=== PATIENT | male | born 1965 | race American Indian/Alaskan Native ===

== ENCOUNTER 2017-01-06 09:28 | Day surgery (SDC) | payer OTHER ==
[~2017-01-06 09:28] MED LIST: ePHEDrine SULFATE ONE
[2017-01-06] MEDS ORDERED: NACL 0.9% 1000 ML 1,000 ML IV SCH (10:00)
--- NOTE | 2017-01-06 10:31 | Anesthesia Day of Surgery ---
Anesthesia Day of Surgery - Day of Surgery Patient Examined: Yes Patient H&P Reviewed: Yes Patient is NPO: Yes
--- NOTE | 2017-01-06 10:31 | Anesthesia Consultation ---
Anesthesia Consult and Med Hx Date of service: 01/06/17 - Airway Anesthetic Teeth Evaluation: Good ROM Head & Neck: Adequate Mental/Hyoid Distance: Adequate Mallampati Class: Class II - Pulmonary Exam CTA: Yes - Cardiac Exam Cardiac Exam: RRR - Pre-Operative Health Status ASA Pre-Surgery Classification: ASA2 Proposed Anesthetic Plan: MAC - Cardiovascular System Hx Hypertension: Yes Hx Cardia Arrhythmia: Yes
--- NOTE | 2017-01-06 12:41 | Consultation ---
History of Present Illness Consult date: 01/06/17 Consult reason: pre op evaluation, other (abnormal ECG) History of present illness: 51y M who is here for routine outpatient colonoscopy. Pre-procedure evaluation revealed marked bradycardia. ECG: Marked sinus ladi 38, with LVH and repolarization abnormalities of LVH. [facility] consult requested. Patient is asymptomatic. Looks and feels well. No chest pain or SOB or dizziness or fatigue. No syncope. Past history of chronic hypertension. His medications include Atenolol 100mg. No prior cardiac history. A stress test 2 years ago was negative per patient report. Past History Past Medical History: hypertension Medications and Allergies Allergies Allergy/AdvReac Type Severity Reaction Status Date / Time No Known Allergies Allergy Verified 01/06/17 09:51 Home Medications Medication Instructions Recorded Confirmed Last Taken Type Atenolol/Chlorthalidone 100 mg PO DAILY 01/06/17 01/06/17 01/06/17 History Doxazosin 2 mg PO HS 01/06/17 01/06/17 01/05/17 History amLODIPine 10 mg PO DAILY 01/06/17 01/06/17 01/06/17 History Active Meds: Active Medications Sodium Chloride (Nacl 0.9% 1000 Ml) 1,000 mls @ 50 mls/hr IV DIRECT NICHOLAS Stop: 01/06/17 23:59 Review of Systems Cardiovascular: no chest pain, no orthopnea, no palpitations, no rapid/ irregular heart beat, no edema, no syncope, no lightheadedness, no shortness of breath Physical Examination Vital Signs Temp Pulse Resp BP Pulse Ox 98 F 44 L 15 141/83 98 01/06/17 10:08 01/06/17 10:08 01/06/17 10:08 01/06/17 10:08 01/06/17 10:08 General appearance: no acute distress HEENT: Positive: PERRL Neck: Positive: neck supple Cardiac: Positive: Regular Rhythm Lungs: Positive: clear to auscultation Neuro: Positive: Grossly Intact Abdomen: Positive: Soft Male genitourinary: Positive: deferred Skin: Positive: Clear Extremities: Absent: edema EKG interpretations - Telemetry EKG Rhythm: Sinus Bradycardia Assessment and Plan - Patient Problems (1) Pre-op evaluation Current Visit: Yes Status: Acute Plan to address problem: Hold procedure until bradycardia resolves, HR increases to >50. Otherwise OK to proceed. (2) Bradycardia Current Visit: Yes Status: Acute Plan to address problem: Bradycardia is likely due to Atenolol, we recommend stoppage of this medication. (3) Hypertension Current Visit: Yes Status: Acute Qualifiers: Hypertension type: H Plan to address problem: Stop Atenolol due to bradycardia. Continue Amlodipine and Doxazosin for HTN. (4) Abnormal ECG Current Visit: Yes Status: Acute Plan to address problem: ECG suggests LVH which is consistent with his history of chronic HTN. Recommend obtain a copy of his prior ECG for comparison.
[2017-01-06] MEDS ORDERED: XYLOCAINE 2% INFILTRATI ONE (13:51)
[2017-01-06] MEDS ORDERED: DIPRIVAN 10 MG/ML IV ONE ×3 (13:52→14:41)
[2017-01-06] MEDS ORDERED: WATER FOR IRRIG STERILE IR ONE (13:57)
[2017-01-06] MEDS ORDERED: WATER FOR IRRIG STERILE ONE (13:58)
[2017-01-06] MEDS ORDERED: ROBINUL ONE (14:10)
--- NOTE | 2017-01-06 15:11 | Operative Report ---
Operative Report Operative Report: Date of procedure: 01/06/2017 Procedure: Colonoscopy with multiple hot biopsy polypectomies and polyp ablations Attending physician: Mckinley Alan MD Data Entry Supervisor: Mckinley Alan MD Indication: Colorectal cancer screening Consent: Informed consent was obtained after advising the patient and family regarding nature of this procedure, its indications, potential benefits as well as possible complications including but not limited to bleeding perforation and adverse reaction to medication, infection as well as other cardiopulmonary complications. An informed written and verbal consent was then obtained after due opportunity was provided for questions and answers. Monitoring: Patient was monitored continuously with pulse oximetry and electrocardiographic recordings as well as blood pressure recordings. Vital signs remained stable throughout this procedure with no untoward events. Preoperative assessment: Patient was assessed immediately prior to this procedure for capacity to tolerate monitored anesthesia care and moderate sedation as well as general anesthesia. Patient's ASA classification is 2, Mallampati class is 2, Hyomental distance is 3. Instrument: Fujinon videocolonoscope Medications: Propofol given intravenously in divided doses for details please refer to anesthesia records. Description of procedure: Patient was placed in the left lateral decubitus position after achieving sedation, a digital rectal examination was performed following which the colonoscope was introduced into the anal verge and advanced to the cecum which was identified by the cecal valve, the appendiceal orifice, as well as by the cecal strap and direct transillumination. The colonoscope was subsequently withdrawn with careful inspection of all mucosal surfaces. Patient tolerated this procedure well and was subsequently taken to the recovery room. The following findings were noted. Findings: Patient had thick densely adherent stool in various sections of the colon was vigorously irrigated to optimize visualization. The cecum otherwise was normal ascending colon was normal transverse colon was normal the descending colon was normal in the sigmoid colon, patient had multiple diminutive flat polyps that were removed by hot biopsy polypectomy and ablated in all, more than 8 polyps were removed polyps sizes were between 4-8 mm. All polyps were flat. In the rectum, patient had 2 diminutive polyps that were ablated. On the retroflex view at the anal verge patient had prominent internal hemorrhoids. Impression: Multiple diminutive colon polyps status post hot biopsy polypectomy and ablation Multiple rectal polyp status post ablation Internal hemorrhoids Plan: Follow pathology report High-fiber diet Repeat colonoscopy in 5 years.
--- NOTE | 2017-01-06 15:12 | Discharge Summary ---
Short Stay Discharge Plan Weight Bearing Status: Weight Bear as Tolerated Diet: regular Follow up with: GILMA CHAO DO [Primary Care Provider] - 7 Days
[2017-01-06 15:39] VITALS: BP 104/46
--- NOTE | 2017-01-06 16:14 | Post Anesthesia Evaluation ---
- Post Anesthesia Evaluation Patient Participated: Yes Airway Patent: Yes Stable Respiratory Function: Yes Temp > 96.8F: Yes Pain Manageable: Yes Adequeate Hydration: Yes Anesthesia Complications: No Block Receding Appropriately: Not Applicable (Mr Pradhan was informed that his pulse was in low 40's and this was likely due to excessive atenolol. He was urged to contact his personal physician today concerning dosage adjustment.)
== END 2017-01-06 09:29 | disposition home or self-care (01) ==
LOC: GIO 09:28
PROVIDERS: ATTEND Internal Medicine Gastroenterology
DX: Z12.11 Encounter for screening for malignant neoplasm of colon (principal); K63.5 Polyp of colon; K62.1 Rectal polyp; K64.8 Other hemorrhoids; I10 Essential (primary) hypertension; Z79.899 Other long term (current) drug therapy; Z83.71 Family history of colonic polyps; Z80.0 Family history of malignant neoplasm of digestive organs
CPT/HCPCS: 45384; 45388; 88305; 93005; 93010; J2704; J7030